=== PATIENT | female | born 1965 | race Two or more races ===

== ENCOUNTER 2017-03-22 09:56 | Inpatient (IN) | payer MEDICAID ==
[~2017-03-22] VITALS: Ht 162.6 cm; Wt 103.9 kg
[2017-03-22 05:00] VITALS: BP 100/63
[~2017-03-22 09:56] MED LIST: METOPROLOL
[2017-03-22] MEDS ORDERED: KETOROLAC TROMETH 60MG/2ML VIAL IM ONE (10:30)
[2017-03-22] MEDS ORDERED: HYDROcodone-ACET 10/325MG TAB PO ONE (10:45)
[2017-03-22] MEDS ORDERED: METHOCARBAMOL 500 MG TAB PO ONE (10:45)
[2017-03-22] MEDS ORDERED: InsuLIN REG 1unit/0.01ml Soln (100units/ml) SC ONE (11:00)
[2017-03-22] MEDS ORDERED: SODIUM CHLORIDE 0.9% 1,000 ML IV ONE (11:00)
[2017-03-22 11:47] LABS: Basophils # (auto) 0 uL; Basophils % (auto) 0.3 % (0.0-2.0); CONDITION Y; Eosinophils # (auto) 0.1 uL; Eosinophils % (auto) 0.8 % (0.0-7.0); Hematocrit 39.3 % (36.0-46.0); Hemoglobin 13.3 g/dL (12.2-16.2); Lymphocytes # (auto) 1.2 uL; Lymphocytes % (auto) 15.7 % (10.0-50.0); Mean Corpuscular Hemoglobin 31.1 pg (28.0-32.0); Mean Corpuscular Hgb Conc. 33.9 g/dL (32.0-36.0); Mean Corpuscular Volume 91.8 fL (80.0-100.0); Mean Platelet Volume 9.8 fL (7.4-10.4); Monocytes # (auto) 0.4 uL; Monocytes % (auto) 4.9 % (0.0-12.0); Neutrophils # (auto) 6.2 uL; Neutrophils % (auto) 78.3 % (37.0-80.0); Platelet Count (auto) 222 10^3/uL (140-450); Red Cell Distribution Width 13.4 % (11.6-16.0); White Blood Cell 7.9 10^3/uL (4.4-10.8)
[2017-03-22] MEDS ORDERED: HYDROmorphone HCL 2 MG/ML VL IV ONE (12:00)
[2017-03-22] MEDS ORDERED: ONDANSETRON HCL 4 MG/2 ML VIAL IV ONE (12:00)
[2017-03-22 12:12] LABS: Albumin 3.3 g/dL (3.4-5.0); BUN/Creatinine Ratio 12.5; Calcium 8.2 mg/dL (8.5-10.1); Potassium 4.3 mmol/L (3.5-5.1)
[2017-03-22 12:15] LABS: Bilirubin, Total 1.1 mg/dL (0.2-1.0); Total Protein 7.3 g/dL (6.4-8.2)
[2017-03-22] MEDS ORDERED: DEXTROSE (50%) 50ML SYRG IV PRN (12:45)
[2017-03-22] MEDS ORDERED: LORazepam 0.5 MG TAB PO PRN (12:45)
[2017-03-22] MEDS ORDERED: LACTULOSE 20Gm/30ML SOLN PO PRN (12:45)
[2017-03-22] MEDS ORDERED: NITROGLYCERIN 0.4 MG SL TAB SL PRN (12:45)
[2017-03-22] MEDS ORDERED: ACETAMINOPHEN 500 MG TAB PO PRN (12:45)
[2017-03-22] MEDS ORDERED: PROMETHAZINE HCL 25 MG/ML 1ML IV PRN (12:45)
[2017-03-22] MEDS ORDERED: PANTOPRAZOLE 40 MG TAB PO ONE (13:00)
[2017-03-22] MEDS: SODIUM CHLORIDE 0.9% 1,000 ML IV SCH ×2 (14:01→20:56)
[2017-03-22] MEDS: HYDROcodone-ACET 5/325MG TAB PO PRN ×2 (14:47→17:54)
[2017-03-22] MEDS ORDERED: cefTRIAXone 1GM/50ML D5W 50 ML IV ONE (15:30)
[2017-03-22] MEDS: ACCU-CHEK COMFORT CURVE STRIP VI SCH ×3 (15:59→23:31)
[2017-03-22] MEDS: InsuLIN REG 1unit/0.01ml Soln (100units/ml) SC SCH ×3 (15:59→23:30)
[2017-03-22] MEDS ORDERED: FLUCONAZOLE 100 MG TAB PO ONE (16:30)
[2017-03-22 16:56] VITALS: BP 137/52
[2017-03-22 18:19] LABS: Urine Bilirubin Negative (Negative); Urine Blood 1+ /uL (Negative); Urine Color Yellow (Yellow); Urine Glucose 4+ mg/dL (Normal); Urine Ketone Negative (Negative); Urine Mucus FEW (None Seen); Urine Nitrite POSITIVE (Negative); Urine RBC 5 /hpf (0 - 4); Urine Squamous Epithelial Cell FEW /hpf (<5); Urine Urobilinogen Normal (Negative); Urine pH 5.5 (5.0-8.0)
[2017-03-22] MEDS: HYDROmorphone HCL 2 MG/ML VL IV PRN (20:10)
[2017-03-22 22:00] VITALS: BP 113/74
[2017-03-22] MEDS ORDERED: METF-370 PO (22:21)
[2017-03-22] MEDS ORDERED: ATOR20TA PO (22:22)
[2017-03-22] MEDS ORDERED: LEV50T PO (22:22)
[2017-03-22] MEDS: TEMAZEPAM 15 MG CAP PO PRN (22:43)
[2017-03-23 01:31] LABS: Alkaline Phosphatase 105 U/L (45-117); Anion Gap 8 (5-15); Aspartate Aminotransferase 108 U/L (15-37); BUN/Creatinine Ratio 16.7; Blood Urea Nitrogen 12 mg/dL (7-18); Calcium 7.6 mg/dL (8.5-10.1); Carbon Dioxide 24 mmol/L (21-32); Chloride 107 mmol/L (98-107); GFR African American 110 mL/min; GFR Non-African American 91 mL/min; Glucose 257 mg/dL (74-106); Potassium 3.7 mmol/L (3.5-5.1); Sodium 139 mmol/L (136-145)
[2017-03-23 01:32] LABS: Albumin 2.8 g/dL (3.4-5.0); Bilirubin, Total 0.4 mg/dL (0.2-1.0); Cholesterol 70 mg/dL (< 200); LDL Cholesterol 34 mg/dL (< 100); Triglycerides 97 mg/dL (< 150)
[2017-03-23 01:37] LABS: Total Protein 6.2 g/dL (6.4-8.2)
[2017-03-23] MEDS: HYDROmorphone HCL 2 MG/ML VL IV PRN ×5 (02:23→21:52)
[2017-03-23 02:57] LABS: HDL Cholesterol 36 mg/dL (40-59)
[2017-03-23] MEDS: ACCU-CHEK COMFORT CURVE STRIP VI SCH ×5 (03:34→21:39)
[2017-03-23] MEDS: InsuLIN REG 1unit/0.01ml Soln (100units/ml) SC SCH ×5 (03:34→21:39)
[2017-03-23 05:00] VITALS: BP 100/63
[2017-03-23] MEDS: SODIUM CHLORIDE 0.9% 1,000 ML IV SCH ×2 (05:18→13:41)
[2017-03-23] MEDS: cefTRIAXone 1GM/50ML D5W 50 ML IV SCH (08:24)
[2017-03-23 09:00] VITALS: BP 122/75
[2017-03-23] MEDS ORDERED: FLUCONAZOLE 100 MG TAB PO SCH (10:00)
[2017-03-23] MEDS: PANTOPRAZOLE 40 MG TAB PO SCH (10:09)
[2017-03-23] MEDS: ASPirin 81 mg TAB PO SCH (10:09)
[2017-03-23 13:00] VITALS: BP 130/84
[2017-03-23] MEDS ORDERED: KETOROLAC TROMETH 30 MG/ML 1ML VIAL IV ONE (14:15)
[2017-03-23] MEDS ORDERED: FLUCONAZOLE 200MG/100ML 100 ML IV ONE (14:15)
[2017-03-23] MEDS ORDERED: DEXTROSE (50%) 50ML SYRG IV PRN (14:15)
[2017-03-23] MEDS: HYDROcodone-ACET 5/325MG TAB PO PRN (15:02)
[2017-03-23 17:00] VITALS: BP 128/78
[2017-03-23] MEDS: metFORMIN HYDROCHLORIDE 500 MG TAB PO SCH (17:38)
[2017-03-23] MEDS: NYSTATIN TOPICAL POWDER 15GM TOP SCH (21:40)
[2017-03-23 22:00] VITALS: BP 139/77
[2017-03-24] MEDS: HYDROmorphone HCL 2 MG/ML VL IV PRN ×4 (02:19→23:53)
[2017-03-24 05:00] VITALS: BP 139/84
[2017-03-24] MEDS: metFORMIN HYDROCHLORIDE 500 MG TAB PO SCH ×2 (06:08→17:40)
[2017-03-24] MEDS: InsuLIN REG 1unit/0.01ml Soln (100units/ml) SC SCH ×5 (06:16→21:39)
[2017-03-24] MEDS: ACCU-CHEK COMFORT CURVE STRIP VI SCH ×4 (06:16→21:39)
[2017-03-24 07:20] LABS: BUN/Creatinine Ratio 14.7; Calcium 8.5 mg/dL (8.5-10.1); Potassium 4.2 mmol/L (3.5-5.1)
[2017-03-24] MEDS: PANTOPRAZOLE 40 MG TAB PO SCH (09:06)
[2017-03-24] MEDS: cefTRIAXone 1GM/50ML D5W 50 ML IV SCH (09:06)
[2017-03-24] MEDS: ASPirin 81 mg TAB PO SCH (09:06)
[2017-03-24] MEDS: FLUCONAZOLE 200MG/100ML 100 ML IV SCH (09:07)
[2017-03-24] MEDS: NYSTATIN TOPICAL POWDER 15GM TOP SCH ×2 (09:07→21:39)
[2017-03-24] MEDS: HYDROcodone-ACET 5/325MG TAB PO PRN ×2 (09:07→20:28)
[2017-03-24 09:09] VITALS: BP 127/77
[2017-03-24] MEDS ORDERED: SODIUM CHLORIDE 0.9% 1,000 ML IV SCH (12:36)
[2017-03-24] MEDS ORDERED: GLIMEPIRIDE 2 MG TAB PO ONE (12:45)
[2017-03-24 13:30] VITALS: BP 120/80
[2017-03-24 16:50] VITALS: BP 160/65
[2017-03-24 21:07] VITALS: BP 151/87
[2017-03-25 04:56] VITALS: BP 139/70
[2017-03-25] MEDS: metFORMIN HYDROCHLORIDE 500 MG TAB PO SCH ×2 (06:28→17:48)
[2017-03-25] MEDS: GLIMEPIRIDE 2 MG TAB PO SCH (06:28)
[2017-03-25] MEDS: ACCU-CHEK COMFORT CURVE STRIP VI SCH ×4 (06:28→22:00)
[2017-03-25] MEDS: InsuLIN REG 1unit/0.01ml Soln (100units/ml) SC SCH ×4 (06:28→22:00)
[2017-03-25] MEDS: HYDROmorphone HCL 2 MG/ML VL IV PRN ×4 (06:29→20:29)
[2017-03-25 09:00] VITALS: BP 128/72
[2017-03-25] MEDS: PANTOPRAZOLE 40 MG TAB PO SCH (09:00)
[2017-03-25] MEDS: ASPirin 81 mg TAB PO SCH (09:01)
[2017-03-25] MEDS: cefTRIAXone 1GM/50ML D5W 50 ML IV SCH (09:01)
[2017-03-25] MEDS: NYSTATIN TOPICAL POWDER 15GM TOP SCH ×2 (09:02→22:45)
[2017-03-25] MEDS: HYDROcodone-ACET 5/325MG TAB PO PRN (09:06)
[2017-03-25] MEDS: FLUCONAZOLE 200MG/100ML 100 ML IV SCH (10:33)
[2017-03-25 13:00] VITALS: BP 122/74
[2017-03-25] MEDS ORDERED: traMADol HCL 50 MG TAB PO PRN (15:45)
[2017-03-25 17:00] VITALS: BP 137/58
[2017-03-25] MEDS ORDERED: KETOROLAC TROMETH 30 MG/ML 1ML VIAL IV SCH (18:00)
[2017-03-25 22:00] VITALS: BP 131/87
[2017-03-26] MEDS: HYDROmorphone HCL 2 MG/ML VL IV PRN ×4 (01:08→20:24)
[2017-03-26 05:00] VITALS: BP 137/74
[2017-03-26] MEDS: ACCU-CHEK COMFORT CURVE STRIP VI SCH ×4 (07:01→22:00)
[2017-03-26] MEDS: GLIMEPIRIDE 2 MG TAB PO SCH (07:01)
[2017-03-26] MEDS: InsuLIN REG 1unit/0.01ml Soln (100units/ml) SC SCH ×4 (07:02→22:00)
[2017-03-26] MEDS: metFORMIN HYDROCHLORIDE 500 MG TAB PO SCH ×2 (07:03→18:00)
[2017-03-26] MEDS: FLUCONAZOLE 200MG/100ML 100 ML IV SCH (08:45)
[2017-03-26] MEDS: ASPirin 81 mg TAB PO SCH (08:45)
[2017-03-26] MEDS: PANTOPRAZOLE 40 MG TAB PO SCH (08:45)
[2017-03-26] MEDS: cefTRIAXone 1GM/50ML D5W 50 ML IV SCH (08:45)
[2017-03-26] MEDS: HYDROcodone-ACET 5/325MG TAB PO PRN ×2 (08:47→23:57)
[2017-03-26 09:00] VITALS: BP 133/76
[2017-03-26] MEDS: NYSTATIN TOPICAL POWDER 15GM TOP SCH ×2 (10:47→23:58)
[2017-03-26 13:00] VITALS: BP 153/89
[2017-03-26 17:00] VITALS: BP 128/86
[2017-03-27] MEDS: TEMAZEPAM 15 MG CAP PO PRN (01:58)
[2017-03-27 04:57] VITALS: BP 121/66
[2017-03-27] MEDS: HYDROmorphone HCL 2 MG/ML VL IV PRN ×3 (06:34→15:34)
[2017-03-27] MEDS: ACCU-CHEK COMFORT CURVE STRIP VI SCH ×3 (06:44→17:30)
[2017-03-27] MEDS: InsuLIN REG 1unit/0.01ml Soln (100units/ml) SC SCH ×3 (06:45→17:31)
[2017-03-27] MEDS: GLIMEPIRIDE 2 MG TAB PO SCH (06:46)
[2017-03-27] MEDS: metFORMIN HYDROCHLORIDE 500 MG TAB PO SCH ×2 (06:47→17:31)
[2017-03-27 07:35] VITALS: BP 151/64
[2017-03-27] MEDS: cefTRIAXone 1GM/50ML D5W 50 ML IV SCH (09:50)
[2017-03-27] MEDS: ASPirin 81 mg TAB PO SCH (09:50)
[2017-03-27] MEDS: PANTOPRAZOLE 40 MG TAB PO SCH (09:50)
[2017-03-27] MEDS: FLUCONAZOLE 200MG/100ML 100 ML IV SCH (09:51)
[2017-03-27] MEDS: NYSTATIN TOPICAL POWDER 15GM TOP SCH (09:53)
[2017-03-27 11:46] VITALS: BP 129/86
[2017-03-27 15:20] VITALS: BP 129/86
[2017-03-27] MEDS: HYDROcodone-ACET 5/325MG TAB PO PRN (16:47)
[2017-03-27 17:20] VITALS: BP 127/91
== END 2017-03-27 17:45 | disposition home or self-care (01) | DRG 351 ==
LOC: ER 09:56 → TELE 09:57 → TELE-WESTW 15:03 → WEST WING 03-24 19:42
PROVIDERS: ADMIT Internal Medicine; ATTEND Internal Medicine
DX: M70.61 Trochanteric bursitis, right hip (principal); E11.65 Type 2 diabetes mellitus with hyperglycemia; I10 Essential (primary) hypertension; B37.3 Candidiasis of vulva and vagina; M47.26 Other spondylosis with radiculopathy, lumbar region; E03.9 Hypothyroidism, unspecified; G89.29 Other chronic pain; F41.9 Anxiety disorder, unspecified; G47.00 Insomnia, unspecified; K59.00 Constipation, unspecified; M51.16 Intervertebral disc disorders with radiculopathy, lumbar region; E78.00 Pure hypercholesterolemia, unspecified; E66.9 Obesity, unspecified; E78.5 Hyperlipidemia, unspecified; Y93.01 Activity, walking, marching and hiking; W01.0XXA Fall on same level from slipping, tripping and stumbling without subsequent striking against object, initial encounter; Z79.84 Long term (current) use of oral hypoglycemic drugs; Z82.3 Family history of stroke; Z83.3 Family history of diabetes mellitus; Z87.891 Personal history of nicotine dependence; Z68.39 Body mass index [BMI] 39.0-39.9, adult; Z87.11 Personal history of peptic ulcer disease; Z88.6 Allergy status to analgesic agent; Z88.5 Allergy status to narcotic agent; Z88.8 Allergy status to other drugs, medicaments and biological substances; Z90.49 Acquired absence of other specified parts of digestive tract; Y92.89 Other specified places as the place of occurrence of the external cause; Y99.8 Other external cause status
CPT/HCPCS: 36415; 71020; 72131; 73700; 80048; 80053; 80061; 80307; 81001; 81002; 82010; 82550; 82962; 83036; 84484; 85025; 85379; 85652; 86141; 87040; 87086; 93005; 96361; 96372; 96374; 96375; 99291; J0696; J1450; J1815; J2405

== ENCOUNTER 2020-06-01 15:00 | Inpatient (IN) | payer MEDICAID ==
[~2020-06-01] VITALS: Ht 162.6 cm; Wt 104.6 kg
[~2020-06-01 15:00] MED LIST changes: +ATOR20TA PO; +LEV50T PO; +METF-370 PO; -METOPROLOL
[2020-06-01] MEDS ORDERED: SODIUM CHLORIDE 0.9% 1,000 ML IV ONE (15:15)
[2020-06-01] MEDS ORDERED: LORazepam 2MG/ML-1ML VIAL IV ONE (15:15)
[2020-06-01 15:46] LABS: Basophils # (auto) 0 10 ^3/uL (0-0.2); Basophils % (auto) 0.8 % (0.0-2.0); Eosinophils # (auto) 0.1 10 ^3/uL (0-0.8); Hematocrit 39.1 % (36.0-46.0); Hemoglobin 13.1 g/dL (12.2-16.2); Lymphocytes # (auto) 1.7 10 ^3/uL (0.4-5.4); Lymphocytes % (auto) 28.6 % (10.0-50.0); Mean Corpuscular Hemoglobin 31.5 pg (28.0-32.0); Mean Corpuscular Hgb Conc. 33.5 g/dL (32.0-36.0); Mean Corpuscular Volume 94.1 fL (80.0-100.0); Monocytes # (auto) 0.4 10 ^3/uL (0-1.3); Monocytes % (auto) 6.3 % (0.0-12.0); Neutrophils # (auto) 3.6 10 ^3/uL (1.6-8.6); Neutrophils % (auto) 62.3 % (37.0-80.0); Platelet Count (auto) 217 10^3/uL (140-450); Red Blood Cells 4.15 10^6/uL (4.0-5.20); Red Cell Distribution Width 13.5 % (11.8-14.3); White Blood Cell 5.8 10^3/uL (4.4-10.8)
[2020-06-01 15:54] LABS: INR 0.99 (0.9-1.15)
[2020-06-01 15:55] LABS: Albumin 3.5 g/dL (3.4-5.0); Anion Gap 7 (5-15); Blood Urea Nitrogen 15 mg/dL (7-18); Calcium 8.2 mg/dL (8.5-10.1); Carbon Dioxide 24 mmol/L (21-32); Chloride 104 mmol/L (98-107); Glucose 106 mg/dL (74-106); Potassium 3.4 mmol/L (3.5-5.1); Sodium 135 mmol/L (136-145)
[2020-06-01 16:01] LABS: Alanine Aminotransferase 81 U/L (13-56); Alkaline Phosphatase 141 U/L (45-117); Aspartate Aminotransferase 91 U/L (15-37); Bilirubin, Total 0.5 mg/dL (0.2-1.0); GFR African American 75 mL/min; GFR Non-African American 62 mL/min; Total Protein 8.3 g/dL (6.4-8.2)
[2020-06-01 16:09] LABS: Urine Bacteria FEW /hpf (None Seen); Urine Blood Negative /uL (Negative); Urine Specific Gravity 1.017 (1.001-1.035); Urine WBC 4 /hpf (0 - 5)
[2020-06-01] MEDS ORDERED: NITROGLYCERIN 0.4 MG SL TAB SL PRN ×2 (16:15→23:30)
[2020-06-01] MEDS ORDERED: MORPHINE SULF INJ 2 MG/ML SYRINGE 1ML IV PRN ×5 (16:15→23:30)
[2020-06-01] MEDS: OXYCODONE W/ ACETAMINOPHEN 5/325MG TABLET PO PRN ×2 (16:47→23:12)
[2020-06-01] MEDS ORDERED: METF-929 PO (17:45)
[2020-06-01] MEDS ORDERED: SERT-275 PO (17:45)
[2020-06-01] MEDS ORDERED: AMLO5TAB15 PO (17:45)
[2020-06-01] MEDS ORDERED: LEVO150T10 PO (17:45)
[2020-06-01] MEDS ORDERED: FURO20TA3 PO (17:45)
[2020-06-01] MEDS ORDERED: BUSP15TA60 PO (17:46)
[2020-06-01] MEDS ORDERED: AMIT10TA6 PO (17:46)
[2020-06-01] MEDS ORDERED: LOSA-69 PO (17:47)
[2020-06-01] MEDS ORDERED: GABA400C11 PO (17:49)
[2020-06-01] MEDS ORDERED: OMEP-260 PO (17:49)
[2020-06-01] MEDS ORDERED: FLUO1TAB14 PO (17:49)
[2020-06-01] MEDS ORDERED: INSU1INJ19 SC (17:50)
[2020-06-01] MEDS ORDERED: OXYC325T14 PO (17:51)
[2020-06-01] MEDS ORDERED: INSU100I49 SC (17:52)
[2020-06-01] MEDS ORDERED: LIDO5PAD8 EX (17:54)
[2020-06-01] MEDS: HYDROmorphone HCL 2 MG/ML VL IV PRN (18:10)
[2020-06-01 20:08] LABS: BUN/Creatinine Ratio 15.2
[2020-06-01 22:00] VITALS: BP 95/57
[2020-06-01] MEDS ORDERED: DOCUSATE SOD 100 MG CAP PO PRN (23:30)
[2020-06-01] MEDS ORDERED: LORazepam 0.5 MG TAB PO PRN (23:30)
[2020-06-01] MEDS ORDERED: POTASSIUM CHL 20 Meq TABLET PO ONE (23:30)
[2020-06-01] MEDS ORDERED: DEXTROSE (50%) 50ML SYRG IV PRN (23:30)
[2020-06-01] MEDS ORDERED: ACETAMINOPHEN 325 MG TAB PO PRN (23:30)
[2020-06-01] MEDS ORDERED: SODIUM CHLORIDE 0.9% 1,000 ML IV SCH (23:30)
[2020-06-01] MEDS ORDERED: ONDANSETRON HCL 4 MG/2 ML VIAL IV PRN (23:30)
[2020-06-01] MEDS ORDERED: ALUM & MAG HYDROX-SIMETH LIQ(MAALOX) 30 ML PO PRN (23:30)
[2020-06-01] MEDS ORDERED: hydrALAZINE HCL 20 MG/ML VL IV PRN (23:45)
[2020-06-02] MEDS: HYDROmorphone HCL 2 MG/ML VL IV PRN (00:18)
[2020-06-02 01:20] LABS: Cholesterol 108 mg/dL (< 200); HDL Cholesterol 45 mg/dL (40-59); LDL Cholesterol 55 mg/dL (< 100); Triglycerides 90 mg/dL (< 150)
[2020-06-02 05:00] VITALS: BP 113/60
[2020-06-02] MEDS: FUROSEMIDE 20 MG/2 ML VIAL IV SCH ×2 (05:49→18:24)
[2020-06-02] MEDS: GABAPENTIN 300 MG CAP PO SCH ×3 (05:49→22:00)
[2020-06-02] MEDS: InsuLIN REG 1unit/0.01ml Soln (100units/ml) SC SCH ×4 (05:50→21:57)
[2020-06-02] MEDS: LEVOTHYROXINE SODIUM 50 MCG TAB PO SCH (05:50)
[2020-06-02] MEDS: ACCU-CHEK COMFORT CURVE STRIP VI SCH ×4 (05:50→21:57)
--- NOTE | 2020-06-02 06:53 | NUR ---
END OF SHIFT NOTE WILL ENDORSE CARE TO DAY SHIFT RN, PT [id number], NO S/S OF DISTRESS OR SOB
--- NOTE | 2020-06-02 07:00 | NUR ---
Opening Shift Note Received report from night nurse. Assumed care of patient, awake and alert. No S/S of distress/SOB or pain. Instructed on POC and to call for assist PRN, will continue to monitor for changes Q1hr and PRN.
[2020-06-02 08:18] LABS: Alcohol, Urine < 3.0 mg/dL (0-10); Amphetamine Screen, Urine NEGATIVE (NEGATIVE); Barbiturate Scree,Urine NEGATIVE (NEGATIVE); Benzodiazephine Screen, Urine NEGATIVE (NEGATIVE); Cannabinoid Screen, Urine NEGATIVE (NEGATIVE); Cocaine Screen, Urine NEGATIVE (NEGATIVE); Opiate Scree,Urine POSITIVE (NEGATIVE); Phencyclidine Screen, Urine NEGATIVE (NEGATIVE)
[2020-06-02 09:00] VITALS: BP 102/52
[2020-06-02] MEDS: LOSARTAN POTASSIUM 25 MG TAB PO SCH (09:48)
[2020-06-02] MEDS ORDERED: PNEUMOCOCCAL VACC POLYS 25 MCG/0.5 ML VIAL IM ONE (10:00)
[2020-06-02] MEDS: SODIUM CHLORIDE 0.9% 1,000 ML IV SCH ×2 (10:28→20:00)
[2020-06-02] MEDS: FAMOTIDINE 20 MG TAB PO SCH ×2 (11:24→22:00)
[2020-06-02] MEDS: SERTRALINE HCL 50 MG TAB PO SCH (11:24)
[2020-06-02] MEDS: POTASSIUM CHL 20 Meq TABLET PO SCH (11:24)
[2020-06-02] MEDS: FLUoxetine HCL 20 MG CAP PO SCH (11:25)
[2020-06-02] MEDS: ASPirin 81 mg TAB PO SCH (11:25)
[2020-06-02] MEDS: busPIRone HCL 10 MG TAB PO SCH ×2 (11:25→21:59)
[2020-06-02] MEDS: ENOXAPARIN SOD 40 MG/0.4 ML SYRINGE SC SCH (11:33)
[2020-06-02] MEDS: OXYCODONE W/ ACETAMINOPHEN 5/325MG TABLET PO PRN ×2 (12:13→20:18)
[2020-06-02 13:00] VITALS: BP 127/68
[2020-06-02 17:00] VITALS: BP 145/74
--- NOTE | 2020-06-02 19:32 | NUR ---
Care endorsed to HARVEY Hair, night nurse.
[2020-06-02] MEDS: AMITRIPTYLINE HCL 10 MG TAB PO SCH (21:59)
[2020-06-02] MEDS: ATORVASTATIN 20 MG TAB PO SCH (22:00)
[2020-06-02] MEDS: HYDROcodone-ACET 5/325MG TAB PO PRN (22:06)
[2020-06-03] VITALS (7 sets, daily range): BP systolic 110–141; BP diastolic 68–79
[2020-06-03] MEDS: OXYCODONE W/ ACETAMINOPHEN 5/325MG TABLET PO PRN ×3 (03:42→16:00)
[2020-06-03] MEDS: InsuLIN REG 1unit/0.01ml Soln (100units/ml) SC SCH ×4 (05:50→22:01)
[2020-06-03] MEDS: ACCU-CHEK COMFORT CURVE STRIP VI SCH ×4 (05:52→22:01)
[2020-06-03] MEDS: LEVOTHYROXINE SODIUM 50 MCG TAB PO SCH (05:52)
[2020-06-03] MEDS: GABAPENTIN 300 MG CAP PO SCH ×3 (05:52→22:02)
[2020-06-03] MEDS: SODIUM CHLORIDE 0.9% 1,000 ML IV SCH ×2 (05:53→17:42)
[2020-06-03] MEDS: FUROSEMIDE 20 MG/2 ML VIAL IV SCH ×3 (05:53→17:41)
[2020-06-03] MEDS: HYDROcodone-ACET 5/325MG TAB PO PRN ×4 (05:59→22:25)
--- NOTE | 2020-06-03 06:53 | NUR ---
END OF SHIFT NOTE WILL ENDORSE CARE TO DAY SHIFT RN, PT [id number], NO S/S OF DISTRESS OR SOB
[2020-06-03 07:11] LABS: Basophils # (auto) 0 10 ^3/uL (0-0.2); Basophils % (auto) 0.8 % (0.0-2.0); Eosinophils # (auto) 0.2 10 ^3/uL (0-0.8); Eosinophils % (auto) 3.4 % (0.0-7.0); Hematocrit 38.9 % (36.0-46.0); Hemoglobin 13.3 g/dL (12.2-16.2); Lymphocytes # (auto) 1.5 10 ^3/uL (0.4-5.4); Lymphocytes % (auto) 32.4 % (10.0-50.0); Mean Corpuscular Hemoglobin 32.3 pg (28.0-32.0); Mean Corpuscular Hgb Conc. 34.1 g/dL (32.0-36.0); Mean Corpuscular Volume 94.6 fL (80.0-100.0); Monocytes # (auto) 0.4 10 ^3/uL (0-1.3); Monocytes % (auto) 7.9 % (0.0-12.0); Neutrophils # (auto) 2.5 10 ^3/uL (1.6-8.6); Neutrophils % (auto) 55.5 % (37.0-80.0); Nucleated Red Blood Cells % 0.1 %; Platelet Count (auto) 211 10^3/uL (140-450); Red Blood Cells 4.11 10^6/uL (4.0-5.20); Red Cell Distribution Width 13.1 % (11.8-14.3); White Blood Cell 4.6 10^3/uL (4.4-10.8)
[2020-06-03 07:32] LABS: Albumin 3.3 g/dL (3.4-5.0); BUN/Creatinine Ratio 20.7; Calcium 8.3 mg/dL (8.5-10.1); Potassium 3.8 mmol/L (3.5-5.1)
[2020-06-03 07:35] LABS: Bilirubin, Total 0.6 mg/dL (0.2-1.0); Total Protein 7.8 g/dL (6.4-8.2)
[2020-06-03] MEDS: ENOXAPARIN SOD 40 MG/0.4 ML SYRINGE SC SCH (10:25)
[2020-06-03] MEDS: ASPirin 81 mg TAB PO SCH (10:26)
[2020-06-03] MEDS: FAMOTIDINE 20 MG TAB PO SCH ×2 (10:26→22:02)
[2020-06-03] MEDS: FLUoxetine HCL 20 MG CAP PO SCH (10:26)
[2020-06-03] MEDS: POTASSIUM CHL 20 Meq TABLET PO SCH (10:26)
[2020-06-03] MEDS: SERTRALINE HCL 50 MG TAB PO SCH (10:27)
[2020-06-03] MEDS: busPIRone HCL 10 MG TAB PO SCH ×2 (10:27→22:03)
[2020-06-03] MEDS: LOSARTAN POTASSIUM 25 MG TAB PO SCH (10:27)
--- NOTE | 2020-06-03 14:00 | NUR ---
Orthostatic Vitals Laying- 135/67 mmHg HR 62 Sitting- 141/73 mmHg HR 67 Standing- 133/73 mmHg HR 71
--- NOTE | 2020-06-03 16:30 | NUR ---
Blood Sugar Patients blood sugar is 53, patient is alert and oriented and able to swallow. Patient given 2 orange juices and noreen crackers will recheck blood sugar in 30 min.
--- NOTE | 2020-06-03 17:30 | NUR ---
Glucose re-Check Patients blood sugar is 198
[2020-06-03] MEDS: ATORVASTATIN 20 MG TAB PO SCH (22:02)
[2020-06-03] MEDS: AMITRIPTYLINE HCL 10 MG TAB PO SCH (22:02)
[2020-06-04] MEDS: OXYCODONE W/ ACETAMINOPHEN 5/325MG TABLET PO PRN (00:39)
[2020-06-04] MEDS: SODIUM CHLORIDE 0.9% 1,000 ML IV SCH ×2 (02:33→12:00)
[2020-06-04 05:20] VITALS: BP 112/75
[2020-06-04] MEDS: InsuLIN REG 1unit/0.01ml Soln (100units/ml) SC SCH ×2 (06:08→13:00)
[2020-06-04] MEDS: FUROSEMIDE 20 MG/2 ML VIAL IV SCH (06:09)
[2020-06-04] MEDS: GABAPENTIN 300 MG CAP PO SCH (06:09)
[2020-06-04] MEDS: LEVOTHYROXINE SODIUM 50 MCG TAB PO SCH (06:10)
[2020-06-04] MEDS: ACCU-CHEK COMFORT CURVE STRIP VI SCH ×2 (06:10→12:54)
[2020-06-04 06:24] LABS: Albumin 3.3 g/dL (3.4-5.0); Calcium 8.7 mg/dL (8.5-10.1); Potassium 3.8 mmol/L (3.5-5.1)
[2020-06-04 06:27] LABS: BUN/Creatinine Ratio 19.4; Bilirubin, Total 0.7 mg/dL (0.2-1.0)
--- NOTE | 2020-06-04 07:42 | NUR ---
END OF SHIFT NOTE WILL ENDORSE CARE TO DAY SHIFT RN, PT [id number], NO S/S OF DISTRESS OR SOB
[2020-06-04 09:00] VITALS: BP 126/67
[2020-06-04] MEDS: busPIRone HCL 10 MG TAB PO SCH (09:07)
[2020-06-04] MEDS: POTASSIUM CHL 20 Meq TABLET PO SCH (09:07)
[2020-06-04] MEDS: ASPirin 81 mg TAB PO SCH (09:07)
[2020-06-04] MEDS: HYDROcodone-ACET 5/325MG TAB PO PRN (09:08)
[2020-06-04] MEDS: FLUoxetine HCL 20 MG CAP PO SCH (09:08)
[2020-06-04] MEDS: SERTRALINE HCL 50 MG TAB PO SCH (09:08)
[2020-06-04] MEDS: ENOXAPARIN SOD 40 MG/0.4 ML SYRINGE SC SCH (09:08)
[2020-06-04] MEDS: FAMOTIDINE 20 MG TAB PO SCH (09:08)
[2020-06-04] MEDS: LOSARTAN POTASSIUM 25 MG TAB PO SCH (09:10)
[2020-06-04 13:00] VITALS: BP 119/65
--- NOTE | 2020-06-04 13:40 | NUR ---
Discharge instructions given as ordered. Encourage to follow up with PCP as instructed.Patient verbalized that she already have an appointment with him and does not need us to make an appointment. All questions and concerns addressed. Patient verbalized understanding. Medication reconciliation form completed and copy given to patient. Patient refused pneumonia vaccine saying that she does not want to wait she has to be discharged right now. IV removed with catheter intact, pressure dressing applied. Telemetry unit returned to ICU. Patient taken to vehicle via wheelchair with all personal belongings, accompanied by staff and family member. No distress noted at time of departure.
== END 2020-06-04 13:35 | disposition home or self-care (01) | DRG 420 ==
LOC: EDBD 15:00 → ER 15:02 → TELE 16:06 → TELE-WESTW 20:56
PROVIDERS: ADMIT Hospitalist; ATTEND Internal Medicine
DX: E09.649 Drug or chemical induced diabetes mellitus with hypoglycemia without coma (principal); G93.41 Metabolic encephalopathy; E66.01 Morbid (severe) obesity due to excess calories; F32.9 Major depressive disorder, single episode, unspecified; E87.6 Hypokalemia; E87.1 Hypo-osmolality and hyponatremia; M19.90 Unspecified osteoarthritis, unspecified site; E03.9 Hypothyroidism, unspecified; E78.5 Hyperlipidemia, unspecified; I10 Essential (primary) hypertension; Z88.6 Allergy status to analgesic agent; Z88.5 Allergy status to narcotic agent; Z88.8 Allergy status to other drugs, medicaments and biological substances; E44.1 Mild protein-calorie malnutrition; F11.20 Opioid dependence, uncomplicated; F17.210 Nicotine dependence, cigarettes, uncomplicated; F41.9 Anxiety disorder, unspecified; G89.4 Chronic pain syndrome; H81.10 Benign paroxysmal vertigo, unspecified ear; M77.9 Enthesopathy, unspecified; Z79.4 Long term (current) use of insulin; Z82.3 Family history of stroke; Z82.49 Family history of ischemic heart disease and other diseases of the circulatory system; Z83.3 Family history of diabetes mellitus; Z87.11 Personal history of peptic ulcer disease; M54.5 Low back pain; S00.03XA Contusion of scalp, initial encounter; W01.10XA Fall on same level from slipping, tripping and stumbling with subsequent striking against unspecified object, initial encounter; Y93.89 Activity, other specified; Y92.512 Supermarket, store or market as the place of occurrence of the external cause; T38.3X5A Adverse effect of insulin and oral hypoglycemic [antidiabetic] drugs, initial encounter; Z68.41 Body mass index [BMI] 40.0-44.9, adult
CPT/HCPCS: 36415; 70450; 70551; 71045; 73502; 74176; 80053; 80061; 80307; 81001; 82962; 83036; 84484; 85025; 85610; 85730; 87040; 87086; 93005; 93306; 93886; 95819; 96361; 96374; 99291; G0378; J1815

== ENCOUNTER 2020-06-27 14:49 | Emergency (ER) | payer MEDICAID, OTHER ==
[~2020-06-27] VITALS: Ht 172.7 cm; Wt 74.8 kg
[~2020-06-27 14:49] MED LIST changes: +AMIT10TA6 PO; +AMLO5TAB15 PO; +BUSP15TA60 PO; +FLUO1TAB14 PO; +FURO20TA3 PO; +GABA400C11 PO; +INSU100I49 SC; +INSU1INJ19 SC; -LEV50T PO; +LEVO150T10 PO; +LIDO5PAD8 EX; +LOSA-69 PO; -METF-370 PO; +METF-929 PO; +OMEP-260 PO; +OXYC325T14 PO; +SERT-275 PO
[2020-06-27 15:11] VITALS: BP 138/80
[2020-06-27] MEDS ORDERED: SODIUM CHLORIDE 0.9% 1,000 ML IV ONE (16:45)
[2020-06-27] MEDS ORDERED: HYDROcodone-ACET 10/325MG TAB PO ONE (18:15)
== END 2020-06-27 20:32 | disposition home or self-care (01) ==
LOC: EDBD 14:49 → EDUNIT# 14:49 → ER 14:54
DX: F41.9 Anxiety disorder, unspecified (principal); G89.29 Other chronic pain; M54.5 Low back pain; R41.82 Altered mental status, unspecified; E11.9 Type 2 diabetes mellitus without complications; I10 Essential (primary) hypertension; Z90.49 Acquired absence of other specified parts of digestive tract; Z98.51 Tubal ligation status; Z88.6 Allergy status to analgesic agent
CPT/HCPCS: 70450; 71045; 96360; 99284; J7030